=== PATIENT | female | born 1955 | race Caucasian/White ===

== ENCOUNTER 2017-02-12 10:52 | Emergency (ER) | payer MEDICAID ==
[~2017-02-12] VITALS: Ht 165.1 cm; Wt 68.0 kg
[2017-02-12 10:53] VITALS: BP 150/82
[2017-02-12] MEDS ORDERED: FLUORESCEIN OPHTHALMIC 1 MG STRIP EACHEYE ONE (12:00)
[2017-02-12] MEDS ORDERED: PROPARACAINE OPHTH 0.5%, 15ML EACHEYE ONE (12:00)
== END 2017-02-12 12:33 | disposition home or self-care (01) ==
LOC: ED 12:27
DX: H20.023 Recurrent acute iridocyclitis, bilateral (principal); Z88.0 Allergy status to penicillin
CPT/HCPCS: 99283